=== PATIENT | male | born 1995 | race Caucasian/White ===

== ENCOUNTER 2019-07-06 11:22 | Day surgery (SDC) | payer OTHER ==
[2019-07-05 11:12] VITALS: BMI 26.2
[~2019-07-06 11:22] MED LIST: Bupivacaine HCl 0.5%/Epinephrine 1:200,000/PF 30 ml Vial ONE; Dexamethasone 20 MG/5 ML VIAL ONE; Ketorolac Tromethamine 30 MG/ML VIAL ONE; Lidocaine 1% PF 5 ML VIAL ONE; Ondansetron PF 4 MG/2 ML Vial ONE; PROPOFOL 200 MG/20 ML VIAL ONE; ePHEDrine 50 MG/ML VIAL ONE
[2019-07-06] MEDS ORDERED: Midazolam HCl 2 mg/2 ml Vial ONE (11:31)
[2019-07-06] MEDS ORDERED: Fentanyl 100 MCG/2 ML VIAL ONE ×2 (11:31→11:51)
[2019-07-06] MEDS ORDERED: Bupivacaine/Epinephrine 0.25% 30 ML VIAL ONE (12:22)
[2019-07-06] MEDS ORDERED: Scopolamine 1.5 mg/72 hour Patch ONE (12:36)
[2019-07-06] MEDS ORDERED: Promethazine HCl 25 MG/ML VIAL ONE (15:33)
--- NOTE | 2019-07-07 08:19 | OP ---
DATE OF PROCEDURE: 07/06/2019 PREOPERATIVE DIAGNOSIS: Rupture of left wrist scapholunate ligament. POSTOPERATIVE DIAGNOSIS: Rupture of left wrist scapholunate ligament. PROCEDURE PERFORMED: Reconstruction of left wrist scapholunate ligament using a portion of the ECRB tendon as tendon graft and also using the Arthrex InternalBrace System as well as a posterior interosseus neurectomy. HOSE MENDER: Please see operative record. TOURNIQUET TIME: 116 minutes. ANESTHESIA: Regional block and general anesthesia. ESTIMATED BLOOD LOSS: Less than 10 mL. FINDINGS: Completely ruptured dorsal portion and interosseus portion of the scapholunate ligament, left wrist, with thinning of the cartilage at the scaphoid articular surface at the radiocarpal joint. The torn scapholunate ligament was attenuated and contracted and not amenable to primary repair. IMPLANT: 0.062 K-wire and Arthrex suture tape and SwiveLock anchors. CONDITION: Stable. INDICATIONS FOR PROCEDURE: The patient is a 24-year-old male who presented to my clinic few weeks ago for the first time after he suffered an injury to his left hand and wrist while riding a long-board skateboard. He fell onto an outstretched left wrist. He did not seek any medical attention for it until recently. He had x- rays that showed significant widening between scapholunate interval of left wrist. He had a positive Yo's on clinical examination. He reported ongoing pain over the radial aspect of the left wrist especially while weightlifting. We discussed surgical and nonsurgical treatment options. After being discussed all risks and goals associated with surgery and I also had a discussion with the patient's mother as well. They elected to undergo a surgery today for reconstruction of the scapholunate ligament and posterior interosseus neurectomy. I informed patient and his family that it is possible for the reconstruction to weaken over time and he may need a second surgery which may involve excision of the scaphoid and a partial wrist fusion. They voiced understanding of the possibility and agreed to proceed with today's procedure. DESCRIPTION OF PROCEDURE: The patient received a regional block to the left upper extremity by the Anesthesia team while waiting for the surgery in the holding area. Good anesthesia was achieved to left upper extremity. He was then brought back to the operating room and placed supine on the operating room table. Time-out was performed. Antibiotics had been given. General anesthesia was induced by the Anesthesia team. A left upper extremity tourniquet was applied. The left upper extremity was then prepped and draped under sterile aseptic conditions. A second time-out was performed. The left upper extremity was exsanguinated using Esmarch wrap and the tourniquet was inflated to 250 mmHg. A longitudinal 8 cm incision was made in line with third metacarpal ray just ulnar to Michael tubercle using a 15-blade scalpel. Skin flaps were bluntly elevated using tenotomy scissors. A self-retaining retractor was applied. Care was taken to avoid any injury to the dorsal sensory nerve branches in the area. The extensor retinaculum overlying the fourth dorsal compartment tendons was released longitudinally. First prior to this, EPL tendon was identified and released from its third dorsal compartment tendon. The third dorsal compartment retracted radially in order to be protected and out of the way of the field of operation. The fourth dorsal compartment tendons were retracted and posterior interosseous nerve was identified over the radial floor of the fourth compartment. It was resected and send for pathologic specimen. I then used an inverted T-capsulotomy incision to expose the scapholunate ligament. The ligament was identified. The dorsal fibers and some of the interosseus fibers were torn and attenuated and contracted. They were not amenable to primary repair. Therefore the decision was to proceed with the reconstruction. I examined the articular surfaces of the lunate and the scaphoid as well as the radiolunate fossa and radioscaphoid fossa. There appeared to be some wearing already over the scaphoid articular surface, but not enough to warrant a partial wrist fusion and scaphoid excision. Therefore, I harvested a portion of the ECRB tendon and I harvested about 10 cm graft which was approximately 2.5 mm in width. I placed this in sterile saline solution. I then put joysticks into the lunate and scaphoid and used those to reduce the scapholunate interval. I placed a K-wire into the proximal pole of the scaphoid and then into the lunate and then another K-wire into the distal pole of the scaphoid as per Arthrex InternalBrace technique recommendations. I then used the gold cannulated drill to drill over the K-wires that were used as part of the SwiveLock placement. Care was taken to make sure that the wires were precisely placed and a mini fluoro was used to confirm placement of the K- wires. I then prepared the SwiveLock apparatus with the tendon graft and a suture tape and then I advanced the SwiveLock along with the graft and suture tape in the proximal pole of the scaphoid using a mallet and hammer to gently hammer in the SwiveLock into place and then I deployed the SwiveLock along with the graft and a suture tape. I applied another SwiveLock anchor along with the tendon graft and the suture tape into the lunate, holding the scapholunate interval in reduction by clamping the 2 joystick K-wires. A very robust reconstruction was achieved at this time. I then twisted the graft in order to reach the distal pole of the scaphoid and deployed a third SwiveLock anchor using similar technique. The ends of the graft and suture tape were cut, flushed to the cortex and scaphoid. I removed the joysticks and all K-wires. I took completion films. I passively ranged the wrist. There was a very stable construct achieved between the scapholunate interval and I was able to appreciate improved alignment of the scaphoid and lunate without any significant widening on the fluoro images. I advanced another 0.062 K-wire from the scaphoid into the capitate and care was taken to avoid disruption in my reconstruction. The K-wire was then cut below the skin. I irrigated the wound thoroughly. I closed the inverted T-capsulotomy using 3-0 FiberWire and 4-0 Vicryl. I then repaired the retinaculum over the fourth dorsal compartment tendons and the second dorsal compartment tendon using 4-0 Vicryl. Care was taken not to overtighten the retinaculum in order to avoid any irritation of the extensor tendons. The EPL tendon was left transposed over the extensor retinaculum. Skin incision was primarily repaired using 4-0 nylon suture. Tourniquet was deflated during skin closure. Good hemostasis was ensured throughout the entirety of the case using electrocautery device and all fingers resumed a normal pink color once the tourniquet was deflated. Xeroform was applied over the wound along with a bulky dressing. The patient was placed into a thumb spica splint made from plaster which was secured using a Sof-Roll and an Richie wrap. He was given a left upper extremity arm sling to use until he regains feeling in the fingers. He was extubated and transported back to the recovery area in stable condition. I instructed the patient and his mother both preoperatively and then postoperatively that he should remain nonweightbearing, avoid pushing or pulling activities regarding use of his left upper extremity, left hand and wrist. His recovery is most likely going to require at least 2 to 3 months of healing. I will see him back in the clinic in about a week. We will repeat x-rays out of the splint, most likely cast him at that time. He was given a dose of 5/325 Pall Mall 1 to 2 tabs p.o. q.6 hours to take for pain postoperatively. Job ID: [id number] [id number]
== END 2019-07-06 17:20 | disposition home or self-care (01) ==
LOC: SDC 11:22
PROVIDERS: ATTEND Surgery Surgery of the Hand
PROC: 0RQP0ZZ Repair Left Wrist Joint, Open Approach (ICD-10-PCS; principal; 2019-07-06)
DX: S63.392A Traumatic rupture of other ligament of left wrist, initial encounter (principal); I10 Essential (primary) hypertension; V00.131A Fall from skateboard, initial encounter; Z79.899 Other long term (current) drug therapy
CPT/HCPCS: 88305; C1713; J0670; J0690; J1100; J1885; J2001; J2250; J2405; J2550; J2704; J3010; J3490